=== PATIENT | female | born 1950 | race Caucasian/White ===

== ENCOUNTER → 2016-09-06 | Outpatient (CLI) | payer MEDICARE, OTHER ==
[~2016-09-06] MED LIST: ASPI81TA85 PO; CALC600T21 PO; FENO145T PO; FISH1000 PO; FLEXAMIN PO; IBUP600T26 PO; LANS30CA PO; LOSA50TA20 PO; MULTCAP PO; SIMV20TA2 PO; TAMO20TA4 PO; VICO5TAB16 PO; VITA10006 PO; VITA200016 PO; VITA400C97 PO
--- NOTE | 2016-09-12 08:47 | RADONC ---
RADIATION ONCOLOGY FOLLOWUP NOTE DATE: 09/06/2016 CHART NUMBER: [id number]. DIAGNOSIS: Right breast cancer. STAGE: IA, [id number]. DIAGNOSIS: Left breast cancer. STAGE: 1A, T1N0M0. ECOG PERFORMANCE STATUS: 0 FOLLOWUP NOTE: Ms. Banegas is a very pleasant 66-year-old white female with the diagnosis of a stage IA, T 1bN0M0, moderately differentiated infiltrating ductal carcinoma of the right breast as well as a stage IA, T1N0M0 infiltrating ductal carcinoma of the left breast who is presenting to [facility] today for routine followup visit almost 3 years post completion of external beam radiation therapy to the right breast and 10 years post completion of external beam radiation therapy to the left breast. The patient presents today reporting that she is doing quite well with no complaints at this time related to her radiation therapy or disease. She has no breast or bone pain. REVIEW OF SYSTEMS: The patient's review of systems is noncontributory. She denies nausea, vomiting, fevers, chills, night sweats, diplopia, headaches, anxiety or depression, anorexia, weight loss, visual disturbances, chest pain, urinary or bowel difficulties, bone pain, or neurological problems. PHYSICAL EXAMINATION: The patient is a well-developed, well-nourished white female in no acute distress. HEENT exam is normocephalic, atraumatic. Extraocular movements are intact. There is no palpable cervical, supraclavicular, infraclavicular, axillary, or inguinal lymphadenopathy present. Lungs are clear to auscultation and percussion. Heart has a regular rate and rhythm. Abdomen is benign with no hepatosplenomegaly, masses, or tenderness. Breast examination reveals no masses or discharge bilaterally. Skeletal examination reveals no tenderness to pressure or percussion of the bony skeleton. Extremities reveal no clubbing, cyanosis, or edema. Neurologic exam is grossly intact, as is the remainder of the physical examination. ASSESSMENT: The patient is clinically JARAD at this time and will be seen by us again in 6 months for further followup. She will also continue to be followed by her other physicians as well. cc: MD Rabia Mcpherson *Lynne Fernández MD
== END ==
LOC: M ONCR 10:47
PROVIDERS: ATTEND Radiology Radiation Oncology
DX: C50.411 Malignant neoplasm of upper-outer quadrant of right female breast (principal); C50.212 Malignant neoplasm of upper-inner quadrant of left female breast

== ENCOUNTER → 2017-03-21 | Outpatient (CLI) | payer MEDICARE, OTHER ==
[~2017-03-21] MED LIST changes: -CALC600T21 PO; +CALC600T60 PO; +IBUP-1022 PO; -IBUP600T26 PO
--- NOTE | 2017-03-21 12:11 | RADONC ---
RADIATION ONCOLOGY FOLLOWUP NOTE: DATE: 03/21/2017 CHART NUMBER: [id number]. DIAGNOSIS #1: Right breast cancer. STAGE: IA, [id number]. DIAGNOSIS #2: Left breast cancer. STAGE: IA, T1N0M0. ECOG PERFORMANCE STATUS: Zero. FOLLOWUP NOTE: Ms. Banegas is a very pleasant, 67-year-old white female with the diagnosis of a stage IA, [id number] moderately differentiated infiltrating ductal carcinoma of the right breast as well as a stage IA, T1N0M0 infiltrating ductal carcinoma of the left breast who is presenting to us today for routine followup visit 3-1/2 years post completion of external beam radiation therapy to the right breast and 10-1/2 years post completion of external beam radiation therapy to the left breast. The patient presents today reporting that she is doing quite well with no complaints at this time related to her radiation therapy or disease. She has no breast or bone pain. REVIEW OF SYSTEMS: The patient's review of systems is noncontributory. Denies nausea, vomiting, fevers, chills, night sweats, diplopia, headaches, anxiety or depression, anorexia, weight loss, visual disturbances, chest pain, urinary or bowel difficulties, bone pain, or neurological problems. PHYSICAL EXAMINATION: The patient is a well-developed, well-nourished, white female, in no acute distress. HEENT exam is normocephalic, atraumatic. Extraocular movements are intact. There is no palpable cervical, supraclavicular, infraclavicular, axillary, or inguinal lymphadenopathy present. Lungs are clear to auscultation and percussion. Heart has a regular rate and rhythm. Abdomen is benign with no hepatosplenomegaly, masses, or tenderness. Breast examination reveals no masses or discharge bilaterally. Skeletal examination reveals no tenderness to pressure or percussion of the bony skeleton. Extremities reveal no clubbing, cyanosis, or edema. Neurologic exam is grossly intact, as is the remainder of the physical examination. ASSESSMENT: The patient is clinically JARAD at this time and will be seen by us again in 6 months for further followup. She will also continue to be followed by her other physicians as well. cc: MD Rabia Mcpherson
== END ==
LOC: M ONCR 10:11
PROVIDERS: ATTEND Radiology Radiation Oncology
DX: C50.411 Malignant neoplasm of upper-outer quadrant of right female breast (principal)

== ENCOUNTER → 2018-07-14 | Outpatient (CLI) | payer MEDICARE, OTHER | LOC: M LRY 10:28 | DX: R05 Cough (principal) | CPT/HCPCS: 71046 ==

== ENCOUNTER 2018-07-16 16:10 | Emergency (ER) | payer MEDICARE, OTHER ==
[~2018-07-16] VITALS: Ht 160 cm; Wt 70.9 kg
[~2018-07-16 16:10] MED LIST changes: -FENO145T PO; +FENO145T13 PO; -LOSA50TA20 PO; +LOSA50TA73 PO; -TAMO20TA4 PO; +TAMO20TA8 PO
[2018-07-16] MEDS ORDERED: OSEL75CA2 (16:24)
[2018-07-16] MEDS ORDERED: SYNT50TA (16:24)
[2018-07-16] MEDS ORDERED: ALBUTEROL SULFATE 2.5 MG/0.5 ML INH NEB SOLN INH ONE (16:45)
[2018-07-16 17:38] LABS: INFLUENZA A AMPLIFICATION NEGATIVE (NEGATIVE); INFLUENZA B AMPLIFICATION NEGATIVE (NEGATIVE)
[2018-07-16] MEDS ORDERED: ZITHTAB PO (17:59)
[2018-07-16] MEDS ORDERED: VENTAER INH (17:59)
[2018-07-16] MEDS ORDERED: BENZ200C70 PO (17:59)
[2018-07-16] MEDS ORDERED: AZITHROMYCIN 250 MG TAB PO ONE (18:00)
[2018-07-16] MEDS ORDERED: BENZONATATE 100 MG CAP PO ONE (18:00)
[2018-07-16 18:07] VITALS: BP 115/57
[2018-07-16] MEDS ORDERED: ACETAMINOPHEN 325 MG TAB As Ordered ONE (18:07)
[2018-07-16] MEDS ORDERED: ACETAMINOPHEN 325 MG TAB PO ONE (18:15)
[2018-07-16] MEDS ORDERED: ALBUTEROL 90 MCG/ACT 8GM HFA INHALER INH ONE (18:15)
[2018-07-16] MEDS ORDERED: ONDANSETRON 4 MG ORAL DISINTEGRATING TAB (Q0162 PER 1MG) PO ONE (18:45)
== END 2018-07-16 19:01 | disposition home or self-care (01) ==
LOC: M ED 16:10
DX: J20.9 Acute bronchitis, unspecified (principal); H66.43 Suppurative otitis media, unspecified, bilateral; I10 Essential (primary) hypertension; E03.9 Hypothyroidism, unspecified; E78.00 Pure hypercholesterolemia, unspecified; K21.9 Gastro-esophageal reflux disease without esophagitis; C50.919 Malignant neoplasm of unspecified site of unspecified female breast; Z88.5 Allergy status to narcotic agent; Z88.0 Allergy status to penicillin; Z91.040 Latex allergy status; Z79.899 Other long term (current) drug therapy; Z79.82 Long term (current) use of aspirin
CPT/HCPCS: 87502; 99284; Q0162

== ENCOUNTER → 2018-10-23 | Outpatient (CLI) | payer MEDICARE, OTHER ==
[~2018-10-23] MED LIST changes: +BENZ200C70 PO; -LOSA50TA73 PO; +LOSA50TA88 PO; +OSEL75CA2; +SYNT50TA; +VENTAER INH; -VICO5TAB16 PO; +VICO5TAB17 PO; +ZITHTAB PO
--- NOTE | 2018-10-23 16:26 | RADONC ---
RADIATION ONCOLOGY FOLLOWUP NOTE DATE: 10/23/2018 CHART NUMBER: [id number] DIAGNOSIS #1: Right breast cancer. DIAGNOSIS #2: Left breast cancer. STAGE: I A, [id number]. STAGE: I A, T1N0M0. FOLLOWUP NOTE: Ms. Banegas is a very pleasant, 68-year-old white female with the diagnosis of a stage I A, [id number] moderately differentiated infiltrating ductal carcinoma of the right breast, as well as a stage I A, T1N0M0 infiltrating ductal carcinoma of the left breast, who is presenting to us today for routine followup visit 5 years post completion of external beam radiation therapy to the right breast and 12 years post completion of external beam radiation therapy to the left breast. The patient presents today reporting that she is doing quite well with no complaints at this time related to her radiation therapy disease. She has no breast or bone pain. REVIEW OF SYSTEMS: The patient's review of systems is noncontributory. Denies nausea, vomiting, fevers, chills, night sweats, diplopia, headaches, anxiety or depression, anorexia, weight loss, visual disturbances, chest pain, urinary or bowel difficulties, bone pain, or neurological problems. PHYSICAL EXAMINATION: The patient is a well-developed, well-nourished 68-year-old white female, in no acute distress. HEENT exam is normocephalic, atraumatic. Extraocular movements are intact. There is no palpable cervical, supraclavicular, infraclavicular, axillary, or inguinal lymphadenopathy present. Lungs are clear to auscultation and percussion. Heart has a regular rate and rhythm. Abdomen is benign with no hepatosplenomegaly, masses, or tenderness. Breast examination reveals no masses or discharge bilaterally. Skeletal examination reveals no tenderness to pressure or percussion of the bony skeleton. Extremities reveal no clubbing, cyanosis, or edema. Neurologic exam is grossly intact, as is the remainder of the physical examination. ASSESSMENT: The patient is clinically JARAD at this time and will be seen by us again in 1 year for further followup. She will also continue to be followed by her other physicians as well. cc: MD Rabia Mcpherson NP
== END ==
LOC: M ONCR 09:41
PROVIDERS: ATTEND Radiology Radiation Oncology
DX: Z08 Encounter for follow-up examination after completed treatment for malignant neoplasm (principal); Z85.3 Personal history of malignant neoplasm of breast

== ENCOUNTER 2020-10-09 12:12 | Emergency (ER) | payer MEDICARE, OTHER ==
[~2020-10-09] VITALS: Ht 160 cm; Wt 72.7 kg
[~2020-10-09 12:12] MED LIST changes: +ASCO500T PO; -ASPI81TA85 PO; +ASPI81TA86 PO; -FENO145T13 PO; +FENO145T7 PO; -SIMV20TA2 PO; +SIMV20TA22 PO; +VITA400C83 PO
[2020-10-09] MEDS ORDERED: traMADol 50 MG TAB PO ONE (12:55)
--- NOTE | 2020-10-09 13:20 | REP ---
INDICATION: low back pain. COMPARISON: 05/20/2010. TECHNIQUE: Three views. FINDINGS: There is mild scoliosis convex right as an interval change, possibly positional. 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 This is unchanged. Vertebral body heights, interspacing and alignment are normal. The facets are unremarkable on these three views. The pedicles are unremarkable. Mineralization is normal. The sacroiliac articulations are unremarkable. There is surgical staple lines in the pelvis bilaterally as an interval change. There are are abdominal right upper quadrant surgical clips, unchanged. IMPRESSION: Mild scoliosis. 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 Surgical clips and staple lines as described. <Electronically signed by Abimael Saleh > 10/09/20 [id number]
--- NOTE | 2020-10-09 14:20 | REP ---
INDICATION: right upper thigh pain; r/o DVT/superficial thrombus. COMPARISON: None. TECHNIQUE: Multiple sonographic images of the right lower extremity deep veins including Doppler ultrasound. FINDINGS: The deep veins demonstrate normal compression, normal Doppler color flow and normal Doppler waveforms with respiration augmentation at multiple levels. Additionally, scanning the soft tissues over the anterior mid thigh in the area of pain identifies no focal fluid collection or mass. IMPRESSION: No deep vein thrombus. No focal fluid collection or mass in the area of pain in the right mid thigh anteriorly. <Electronically signed by Abimael Saleh > 10/09/20 [id number]
[2020-10-09] MEDS ORDERED: ROBA750T4 PO (14:50)
[2020-10-09] MEDS ORDERED: TRAM50TA2 PO (14:50)
[2020-10-09 14:57] VITALS: BP 132/72
== END 2020-10-09 15:07 | disposition home or self-care (01) ==
LOC: M ED 12:12
DX: M54.5 Low back pain (principal); I10 Essential (primary) hypertension; M79.651 Pain in right thigh; E78.5 Hyperlipidemia, unspecified; Z79.51 Long term (current) use of inhaled steroids; Z79.82 Long term (current) use of aspirin; Z79.899 Other long term (current) drug therapy; Z88.0 Allergy status to penicillin; Z88.6 Allergy status to analgesic agent; Z91.040 Latex allergy status

== ENCOUNTER → 2020-12-22 | Outpatient (CLI) | payer MEDICARE, OTHER ==
[~2020-12-22] MED LIST changes: +ROBA750T4 PO; +TRAM50TA2 PO
--- NOTE | 2020-12-22 13:10 | REPPI ---
INDICATION: COPD COMPARISON: 07/14/2018. TECHNIQUE: PA/Lateral FINDINGS: Lungs: Clear, no infiltrate. Heart: Normal in size. Mediastinum: There is calcification and tortuosity of the thoracic aorta. The mediastinal silhouette is unchanged. Pleural angles: Unremarkable.. Bones and soft tissues: There are mild degenerative changes of the spine without compression deformity. Multiple metallic clips are again seen in the left axillary region. IMPRESSION: No acute pulmonary disease. <Electronically signed by Abimael Jones > 12/22/20 [id number]
== END ==
LOC: M PLAIMG 12:02
PROVIDERS: ATTEND Nurse Practitioner Family
DX: J44.9 Chronic obstructive pulmonary disease, unspecified (principal)

== ENCOUNTER → 2021-07-21 | Outpatient (CLI) | payer MEDICARE, OTHER ==
--- NOTE | 2021-07-21 13:49 | REPMRS ---
Patient History Patient is postmenopausal and has history of cancer in the left breast at age 56. No known family history of cancer. Radio exam Breast Specimen of the right breast, July 03, 2013. Localization of Breast Nodule of the right breast, July 03, 2013. Radiation therapy of the right breast, 2012. Radiation therapy of the left breast, 2005. Tomosynthesis is performed. Volpara breast density is b. Patient states no breast complaints today. Patient has signed MRS History Sheet. Digital Woman Screen Mammo: July 21, 2021 - Exam #: [id number] Bilateral CC and MLO view(s) were taken. Technologist: Josee Delatorre, Technologist Prior study comparison: July 13, 2020, bilateral digital mammo screening bilat, performed at [facility]. July 09, 2019, bilateral digital mammo screening bilat, performed at [facility]. FINDINGS: There are scattered fibroglandular densities. There is a fairly symmetric fibroglandular pattern in both breasts. There has been no interval development of masses, areas of architectural distortion or clusters of microcalcifications typical of malignancy. There is stable postsurgical change in the upper-outer quadrant of the right breast. Metallic clips are again seen in the left axillary region. No significant changes when compared with prior studies. Assessment: BI-RADS/ACR category 2 mammogram. Benign Findings. Recommendation Routine screening mammogram of both breasts in 1 year (for women over age 40). This mammogram was interpreted with the aid of an FDA-approved computer-aided dectection system. Electronically Signed By: Abimael Jones MD 07/21/21 [id number]
== END ==
LOC: M WHC 12:37
PROVIDERS: ATTEND Nurse Practitioner Family
DX: Z12.31 Encounter for screening mammogram for malignant neoplasm of breast (principal)

== ENCOUNTER → 2022-07-31 | Outpatient (CLI) | payer MEDICARE, OTHER ==
[~2022-07-31] MED LIST changes: +LOSA50TA28 PO; -LOSA50TA88 PO
== END ==
LOC: M WHC 08:01
PROVIDERS: ATTEND Nurse Practitioner Family
DX: Z12.31 Encounter for screening mammogram for malignant neoplasm of breast (principal)